=== PATIENT | male | born 1930 | race Caucasian/White ===

== ENCOUNTER 2016-11-05 19:46 | Inpatient (IN) | payer MEDICARE, OTHER ==
[2016-11-05 20:29] LABS: HEMOGLOBIN 10.7 gm/dl (14.0-17.5); RED BLOOD COUNT 4.11 M/UL (4.20-5.50); WHITE BLOOD COUNT 15.9 K/UL (4.5-11.0)
[2016-11-06] MEDS ORDERED: ASPIR-LOW81 MG PO (01:08)
[2016-11-06] MEDS ORDERED: CARDURA 2MG TAB2 MG PO (01:09)
[2016-11-06] MEDS ORDERED: DOCUSATE SODIU250 MG PO (01:09)
[2016-11-06] MEDS ORDERED: FENOFIBRATE145 MG PO (01:10)
[2016-11-06] MEDS ORDERED: PROSCAR5 MG PO (01:10)
[2016-11-06] MEDS ORDERED: JANUVIA50 MG PO (01:11)
[2016-11-06] MEDS ORDERED: LASIX TAB 20 MG20 MG PO (01:11)
[2016-11-06] MEDS ORDERED: SYNTHROID25 MCG PO (01:12)
[2016-11-06] MEDS ORDERED: LINZESS145 MCG PO (01:12)
[2016-11-06] MEDS ORDERED: MEGACE400 MG/10 PO (01:13)
[2016-11-06] MEDS ORDERED: SINGULAIR10 MG PO (01:14)
[2016-11-06] MEDS ORDERED: MIRALAX PACK 171 PKT PO (01:14)
[2016-11-06] MEDS ORDERED: FLOMAX 0.4 MG0.4 MG PO (01:15)
[2016-11-06] MEDS ORDERED: COREG 25MG TAB25 MG PO (01:15)
[2016-11-06] MEDS ORDERED: REGLAN5 MG PO (01:16)
[2016-11-06] MEDS ORDERED: DULERA 100 MCG8.8 GM INH (01:16)
[2016-11-06] MEDS ORDERED: NOVOLOG 10100 UNITS1 SQ (01:17)
[2016-11-06] MEDS ORDERED: NEXIUM40 MG PO (01:18)
[2016-11-06] MEDS ORDERED: LEVEMIR100 UNIT/1 SQ (01:19)
[2016-11-06] MEDS ORDERED: TYLENOL 500 MG500 MG PO (01:20)
[2016-11-06] MEDS ORDERED: MELATONIN5 M1 PO (01:21)
[2016-11-06] MEDS ORDERED: COMBIVENT0.074 GM/I INH (01:21)
[2016-11-07 05:52] LABS: HEMOGLOBIN 9.4 gm/dl (14.0-17.5); RED BLOOD COUNT 3.72 M/UL (4.20-5.50)
[2016-11-08 05:50] LABS: HEMOGLOBIN 10.6 gm/dl (14.0-17.5); RED BLOOD COUNT 4.03 M/UL (4.20-5.50); WHITE BLOOD COUNT 10.6 K/UL (4.5-11.0)
[2016-11-09 06:23] LABS: RED BLOOD COUNT 3.98 M/UL (4.20-5.50); WHITE BLOOD COUNT 9.4 K/UL (4.5-11.0)
[2016-11-10 05:55] LABS: HEMOGLOBIN 9.5 gm/dl (14.0-17.5); RED BLOOD COUNT 3.72 M/UL (4.20-5.50); WHITE BLOOD COUNT 9.9 K/UL (4.5-11.0)
== END 2016-11-10 17:47 | DRG 193 ==
LOC: ER1 19:46 → ZEROF 21:18 → MED SURG 4 22:53
PROVIDERS: Family Medicine; Internal Medicine; Specialist/Technologist Athletic Trainer; ADMIT Family Medicine
DX: J11.08 Influenza due to unidentified influenza virus with specified pneumonia (principal); J96.01 Acute respiratory failure with hypoxia; I13.0 Hypertensive heart and chronic kidney disease with heart failure and stage 1 through stage 4 chronic kidney disease, or unspecified chronic kidney disease; I50.22 Chronic systolic (congestive) heart failure; N17.9 Acute kidney failure, unspecified; I31.3 Pericardial effusion (noninflammatory); J14 Pneumonia due to Hemophilus influenzae; N18.3 Chronic kidney disease, stage 3 (moderate); J44.9 Chronic obstructive pulmonary disease, unspecified; E86.0 Dehydration; E11.43 Type 2 diabetes mellitus with diabetic autonomic (poly)neuropathy; K31.84 Gastroparesis; E78.5 Hyperlipidemia, unspecified; D64.9 Anemia, unspecified; E03.9 Hypothyroidism, unspecified; M51.16 Intervertebral disc disorders with radiculopathy, lumbar region; N40.0 Benign prostatic hyperplasia without lower urinary tract symptoms; M19.90 Unspecified osteoarthritis, unspecified site; K59.09 Other constipation; G89.29 Other chronic pain; H18.413 Arcus senilis, bilateral; F41.9 Anxiety disorder, unspecified; F32.9 Major depressive disorder, single episode, unspecified; F10.21 Alcohol dependence, in remission; Z87.01 Personal history of pneumonia (recurrent); Z85.118 Personal history of other malignant neoplasm of bronchus and lung; Z99.81 Dependence on supplemental oxygen; Z79.4 Long term (current) use of insulin; Z79.818 Long term (current) use of other agents affecting estrogen receptors and estrogen levels; Z79.82 Long term (current) use of aspirin; Z79.1 Long term (current) use of non-steroidal anti-inflammatories (NSAID); Z79.899 Other long term (current) drug therapy; Z91.041 Radiographic dye allergy status; Z90.49 Acquired absence of other specified parts of digestive tract; Z98.890 Other specified postprocedural states
CPT/HCPCS: 36415; 36600; 71020; 71250; 80048; 80053; 80202; 82140; 82550; 82553; 82803; 82962; 83605; 83874; 84484; 85025; 85027; 87040; 94640; 94664; 96374; 99285; J1940; J1956; J2543; J2930; J3370; J7030; J7040; J7050; J7070